=== PATIENT | male | born 1960 | race Caucasian/White ===

== ENCOUNTER 2017-01-25 11:06 | Emergency (ER) | payer BC, OTHER ==
[~2017-01-25] VITALS: Ht 180.3 cm; Wt 75.0 kg
[2017-01-25 11:07] VITALS: BP 120/73; PULSE 84; RESP 16; TEMP 98.2; O2SAT 96
[2017-01-25] MEDS ORDERED: IOHEXOL 350 MG/ML 10 ML VIAL (for RAD DIAG) IVCONTRAST ONE (11:07)
--- NOTE | 2017-01-25 11:26 | PD ---
HPI Chief Complaint: Abdominal Pain Time Seen by Provider: 11:14 Travel History International Travel<30 days: No Contact w/Intl Traveler<30days: No Traveled to known affect area: No History of Present Illness HPI 56-year-old male presents to the emergency Department with complaint of left lower abdominal pain since Tuesday. He reports moving heavy furniture on Tuesday with onset of pain. Reports urinary frequency. Denies dysuria. Denies fever, vomiting, change in stool, hematuria. Last normal bowel movement this morning. Denies history of abdominal surgeries. Is prescribed oxycodone for chronic pain and says it helped decrease the pain a little bit. Has not taken any other medications or turning her treatments to alleviate symptoms. No known relieving or aggravating factors. Rates pain 8-/10. Describes as a wrenching sensation. History of insulin-dependent diabetes mellitus, chronic pain. Primary care provider is Dr. Villa. Allergies to penicillin. Has no other medical complaints. No other modifying factors or associated signs and symptoms. PFSH Past Medical History Asthma: No COPD: No Diabetes: Yes Social History Tobacco Use: No Allergies-Medications (Allergen,Severity, Reaction): Coded Allergies: aspirin (Unverified Allergy, Severe, 09/28/16) penicillin G (Unverified Allergy, Severe, 09/28/16) Review of Systems Except as stated in HPI: all other systems reviewed are Neg Physical Exam Narrative GENERAL: Well-nourished, well-developed male patient, in no acute distress; afebrile SKIN: Warm and dry. HEAD: Atraumatic. Normocephalic. EYES: Pupils equal and round. No scleral icterus. No injection or drainage. ENT: Mucosa pink and moist. Airway patent. NECK: Trachea midline. CARDIOVASCULAR: Regular rate and rhythm. No murmur appreciated. RESPIRATORY: No accessory muscle use. Clear to auscultation. Breath sounds equal bilaterally. GASTROINTESTINAL: Abdomen soft, tenderness on palpation to left lower quadrant, nondistended. Hepatic and splenic margins not palpable. Bowel sounds are active 4 quadrants. Nonrigid. No guarding. No inguinal hernia noted lying down or standing. BACK: No CVA tenderness. MUSCULOSKELETAL: No obvious deformities. No clubbing. No cyanosis. No edema. NEUROLOGICAL: Awake and alert. Oriented 3. No obvious cranial nerve deficits. Motor grossly within normal limits. Normal speech. PSYCHIATRIC: Appropriate mood and affect; insight and judgment normal. Data Data Last Documented VS Vital Signs Date Time Temp Pulse Resp B/P (MAP) Pulse Ox O2 Delivery O2 Flow Rate FiO2 01/25/17 12:54 60 17 133/81 (98) 98 Room Air 01/25/17 11:07 98.2 Orders Orders Complete Blood Count With Diff (01/25/17 11:33) Comprehensive Metabolic Panel (01/25/17 11:33) Lipase (01/25/17 11:33) Prothrombin Time / Inr (Pt) (01/25/17 11:33) Act Partial Throm Time (Ptt) (01/25/17 11:33) Urinalysis - C+S If Indicated (01/25/17 11:33) Ct Abd/Pel W Iv Contrast(Rout) (01/25/17 11:33) Iv Access Insert/Monitor (01/25/17 11:33) Ecg Monitoring (01/25/17 11:33) Oximetry (01/25/17 11:33) Morphine Inj (Morphine Inj) (01/25/17 11:45) Sodium Chlor 0.9% 1000 Ml Inj (Ns 1000 M (01/25/17 11:33) Sodium Chloride 0.9% Flush (Ns Flush) (01/25/17 11:45) Ondansetron Inj (Zofran Inj) (01/25/17 11:45) Iohexol 350 Inj (Omnipaque 350 Inj) (01/25/17 11:07) Ed Discharge Order (01/25/17 14:40) Labs Laboratory Tests Test 01/25/17 12:42 01/25/17 12:45 Urine Color YELLOW Urine Turbidity CLEAR Urine pH 5.5 Urine Specific [place] 1.027 Urine Protein TRACE mg/dL Urine Glucose (UA) NEG mg/dL Urine Ketones NEG mg/dL Urine Occult Blood NEG Urine Nitrite NEG Urine Bilirubin NEG Urine Urobilinogen 2.0 MG/DL Urine Leukocyte Esterase NEG Urine WBC 1 /hpf Urine Mucus FEW /lpf Microscopic Urinalysis Comment CULT NOT INDICATED White Blood Count 6.5 TH/MM3 Red Blood Count 5.23 MIL/MM3 Hemoglobin 15.1 GM/DL Hematocrit 46.0 % Mean Corpuscular Volume 88.0 FL Mean Corpuscular Hemoglobin 28.9 PG Mean Corpuscular Hemoglobin Concent 32.9 % Red Cell Distribution Width 12.9 % Platelet Count 179 TH/MM3 Mean Platelet Volume 8.4 FL Neutrophils (%) (Auto) 44.7 % Lymphocytes (%) (Auto) 41.8 % Monocytes (%) (Auto) 9.2 % Eosinophils (%) (Auto) 3.3 % Basophils (%) (Auto) 1.0 % Neutrophils # (Auto) 2.9 TH/MM3 Lymphocytes # (Auto) 2.7 TH/MM3 Monocytes # (Auto) 0.6 TH/MM3 Eosinophils # (Auto) 0.2 TH/MM3 Basophils # (Auto) 0.1 TH/MM3 CBC Comment DIFF FINAL Differential Comment Prothrombin Time 10.9 SEC Prothromb Time International Ratio 1.1 RATIO Activated Partial Thromboplast Time 26.4 SEC Blood Urea Nitrogen 14 MG/DL Creatinine 1.04 MG/DL Random Glucose 162 MG/DL Total Protein 7.3 GM/DL Albumin 3.6 GM/DL Calcium Level 9.0 MG/DL Alkaline Phosphatase 135 U/L Aspartate Amino Transf (AST/SGOT) 17 U/L Alanine Aminotransferase (ALT/SGPT) 21 U/L Total Bilirubin 0.4 MG/DL Sodium Level 136 MEQ/L Potassium Level 3.9 MEQ/L Chloride Level 102 MEQ/L Carbon Dioxide Level 28.8 MEQ/L Anion Gap 5 MEQ/L Estimat Glomerular Filtration Rate 73 ML/MIN Lipase 92 U/L MDM Medical Decision Making Medical Screen Exam Complete: Yes Emergency Medical Condition: Yes Medical Record Reviewed: Yes Differential Diagnosis Diverticulitis, diverticulosis, abscess, gastritis, muscle strain of abdomen, hernia Narrative Course 56-year-old male with left lower quadrant abdominal pain on physical exam. 1134: Dr. Knapp evaluated the patient and agrees with my plan of care. CBC , CMP, lipase, urinalysis, CT abdomen/pelvis, morphine, Zofran, normal saline bolus ordered. 1353: CBC, CMP, urinalysis unremarkable. Lipase 92. 1438: CT abdomen/pelvis concludes: Abdomen/Pelvis CT 01/25/17 1133 Signed Impressions: Service Date/Time: Wednesday, January 25, 2017 13:56 - CONCLUSION: 1. No acute CT findings in abdomen or pelvis to explain patient's symptoms. 2. Normal appendix. 3. Ill-defined 1.7 x 1.3 cm hypodense lesion in segment 4 of the liver. This may be artifactual in etiology related to phase of contrast although a focal hepatic lesion cannot be excluded. Recommend liver MRI examination on an outpatient basis for further evaluation. Saul Moreno MD Discussed CT findings and provided the patient with a copy of CT. Instructed patient to follow up outpatient for MRI as recommended by the CT impressions. Instructed patient to follow up with primary care provider. Patient verbalizes understanding and agreement with treatment plan. Patient is medically cleared and stable for discharge. Discussed reasons to return to the emergency department. Patient agrees with treatment plan. The patients vital signs are stable and the patient is stable for outpatient follow-up and treatment. Patient discharged home, stable and in no acute distress. Diagnosis Primary Impression: Abdominal pain Qualified Codes: R10.32 - Left lower quadrant pain Referrals: [facility] Primary Care Physician Patient Instructions: Abdominal Pain (ED), General Instructions Additional Instructions: Follow-up for outpatient MRI per the recommendation of their CT scan Follow up primary care provider Follow up with gastroenterology Return to the emergency department immediately with worsening of symptoms Med/Other Pt SpecificInfo: No Change to Meds, No Meds Exist/No RX given Disposition: 01 DISCHARGE HOME Condition: Stable Lora Shaikh Jan 25, 2017 11:26
[2017-01-25] MEDS ORDERED: SODIUM CHLOR 0.9% 1000 ML INJ 1,000 ML IV SCH (11:33)
[2017-01-25] MEDS ORDERED: SODIUM CHLORIDE 0.9% FLUSH 10 ML FLUSH IV FLUSH PRN (11:45)
[2017-01-25] MEDS ORDERED: ONDANSETRON HCL 4 MG/2 ML VIAL IV PUSH ONE (11:45)
[2017-01-25] MEDS ORDERED: MORPHINE SULFATE 4 MG/ML INJ IV PUSH ONE (11:45)
[2017-01-25 12:54] VITALS: BP 133/81; PULSE 60; RESP 17; O2SAT 98
[2017-01-25 13:00] VITALS: RESP 17
[2017-01-25 13:12] LABS: AUTOMATED NEUTROPHIL # 2.9 TH/MM3 (1.8-7.7); BASOPHIL # 0.1 TH/MM3 (0-0.2); EOSINOPHIL # 0.2 TH/MM3 (0-0.4); EOSINOPHIL % 3.3 % (0.0-4.0); HEMO FLAGS DIFF FINAL; LYMPH % 41.8 % (9.0-44.0); LYMPHOCYTE # 2.7 TH/MM3 (1.0-4.8); MEAN CORPUSCULAR HEMOGLOBIN 28.9 PG (27.0-34.0); MEAN CORPUSCULAR HGB CONC 32.9 % (32.0-36.0); MONO % 9.2 % (0.0-8.0); NEUT % 44.7 % (16.0-70.0); PLATELET COUNT 179 TH/MM3 (150-450); RED BLOOD COUNT 5.23 MIL/MM3 (4.50-5.90); RED CELL DISTRIBUTION WIDTH 12.9 % (11.6-17.2); WHITE BLOOD COUNT 6.5 TH/MM3 (4.0-11.0)
[2017-01-25 13:18] LABS: BLOOD, URINE NEG (NEG); GLUCOSE,URINE NEG (NEG); KETONE, URINE NEG (NEG); MUCUS URINE FEW /lpf (OCC); NITRITE,URINE NEG (NEG); PH, URINE 5.5 (5.0-8.5); URINE COLOR YELLOW (YELLW/STRAW)
[2017-01-25 13:20] LABS: COMMENT (UR) CULT NOT INDICATED; CULTURE IF INDICATED CULT NOT INDICATED
[2017-01-25 13:21] LABS: APTT (PATIENT) 26.4 SEC (24.3-30.1); INTERNATIONAL NORMALIZED RATIO 1.1 RATIO; PROTHROMBIN TIME - PATIENT 10.9 SEC (9.8-11.6)
[2017-01-25 13:30] LABS: ALT (GPT) 21 U/L (12-78); ANION GAP 5 MEQ/L (5-15); AST (GOT) 17 U/L (15-37); BICARBONATE 28.8 MEQ/L (21.0-32.0); BLOOD UREA NITROGEN 14 MG/DL (7-18); CHLORIDE 102 MEQ/L (98-107); GLOMERULAR FILTRATION RATE 73 ML/MIN (>89); POTASSIUM 3.9 MEQ/L (3.5-5.1); SODIUM (NA) 136 MEQ/L (136-145)
[2017-01-25 13:31] LABS: ALKALINE PHOSPHATASE 135 U/L (45-117); TOTAL BILIRUBIN ADULT 0.4 MG/DL (0.2-1.0)
--- NOTE | 2017-01-25 14:29 | RADRPT ---
EXAM DATE/TIME: 01/25/2017 13:56 [facility] COMPARISON: No previous studies available for comparison. INDICATIONS : Lower abdominal pain. IV CONTRAST: 95 cc Omnipaque 350 (iohexol) IV ORAL CONTRAST: No oral contrast ingested. RADIATION DOSE: 5.64 CTDIvol (mGy) MEDICAL HISTORY : Diabetes mellitus type 2. SURGICAL HISTORY : None. ENCOUNTER: Initial ACUITY: 1 day PAIN SCALE: 5/10 LOCATION: Bilateral lower quadrant TECHNIQUE: Volumetric scanning of the abdomen and pelvis was performed. Using automated exposure control and ad justment of the mA and/or kV according to patient size, radiation dose was kept as low as reasonably achievable to obtain optimal diagnostic quality images. DICOM format image data is available electro nically for review and comparison. FINDINGS: LOWER LUNGS: The visualized lower lungs are clear. LIVER: There is an ill-defined 1.7 x 1.3 cm hypodense lesion in segment 4 of the liver. Liver otherwise appe ars unremarkable without significant volume loss. Gallbladder is decompressed and unremarkable by CT. SPLEEN: Normal size without lesion. PANCREAS: Within normal limits. KIDNEYS: There is a 4.0 x 2.8 cm large endophytic cyst in the mid left kidney. Kidneys otherwise demonstrate s ymmetrical enhancement without evidence for hydronephrosis or radiopaque renal calculi. ADRENAL GLANDS: Within normal limits. VASCULAR: There is no aortic aneurysm. BOWEL/MESENTERY: The stomach, small bowel, and colon demonstrate no acute abnormality. Appendix is visualized and appe ars unremarkable. There is no free intraperitoneal air or fluid. ABDOMINAL WALL: Within normal limits. RETROPERITONEUM: There is no lymphadenopathy. BLADDER: No wall thickening or mass. REPRODUCTIVE: Within normal limits. INGUINAL: Well-defined calcified density in the left inguinal canal not associated with any additional abnormal ity. This may reflect a small phlebolith MUSCULOSKELETAL: Degenerative spondylosis of the lumbar spine. No abnormal lytic or blastic bony lesions. CONCLUSION: 1. No acute CT findings in abdomen or pelvis to explain patient's symptoms. 2. Normal appendix. 3. Ill-defined 1.7 x 1.3 cm hypodense lesion in segment 4 of the liver. This may be artifactual in et iology related to phase of contrast although a focal hepatic lesion cannot be excluded. Recommend valerie er MRI examination on an outpatient basis for further evaluation. Saul Moreno MD on January 25, 2017 at 14:16 Board Certified Radiologist. This report was verified electronically.
--- NOTE | 2017-01-25 14:38 | PD ---
Data Data Last Documented VS Vital Signs Date Time Temp Pulse Resp B/P (MAP) Pulse Ox O2 Delivery O2 Flow Rate FiO2 01/25/17 15:01 01/25/17 13:00 17 01/25/17 12:54 60 98 Room Air 01/25/17 11:07 98.2 Orders Orders Complete Blood Count With Diff (01/25/17 11:33) Comprehensive Metabolic Panel (01/25/17 11:33) Lipase (01/25/17 11:33) Prothrombin Time / Inr (Pt) (01/25/17 11:33) Act Partial Throm Time (Ptt) (01/25/17 11:33) Urinalysis - C+S If Indicated (01/25/17 11:33) Ct Abd/Pel W Iv Contrast(Rout) (01/25/17 11:33) Iv Access Insert/Monitor (01/25/17 11:33) Ecg Monitoring (01/25/17 11:33) Oximetry (01/25/17 11:33) Morphine Inj (Morphine Inj) (01/25/17 11:45) Sodium Chlor 0.9% 1000 Ml Inj (Ns 1000 M (01/25/17 11:33) Sodium Chloride 0.9% Flush (Ns Flush) (01/25/17 11:45) Ondansetron Inj (Zofran Inj) (01/25/17 11:45) Iohexol 350 Inj (Omnipaque 350 Inj) (01/25/17 11:07) Ed Discharge Order (01/25/17 14:40) Labs Laboratory Tests Test 01/25/17 12:42 01/25/17 12:45 Urine Color YELLOW Urine Turbidity CLEAR Urine pH 5.5 Urine Specific [place] 1.027 Urine Protein TRACE mg/dL Urine Glucose (UA) NEG mg/dL Urine Ketones NEG mg/dL Urine Occult Blood NEG Urine Nitrite NEG Urine Bilirubin NEG Urine Urobilinogen 2.0 MG/DL Urine Leukocyte Esterase NEG Urine WBC 1 /hpf Urine Mucus FEW /lpf Microscopic Urinalysis Comment CULT NOT INDICATED White Blood Count 6.5 TH/MM3 Red Blood Count 5.23 MIL/MM3 Hemoglobin 15.1 GM/DL Hematocrit 46.0 % Mean Corpuscular Volume 88.0 FL Mean Corpuscular Hemoglobin 28.9 PG Mean Corpuscular Hemoglobin Concent 32.9 % Red Cell Distribution Width 12.9 % Platelet Count 179 TH/MM3 Mean Platelet Volume 8.4 FL Neutrophils (%) (Auto) 44.7 % Lymphocytes (%) (Auto) 41.8 % Monocytes (%) (Auto) 9.2 % Eosinophils (%) (Auto) 3.3 % Basophils (%) (Auto) 1.0 % Neutrophils # (Auto) 2.9 TH/MM3 Lymphocytes # (Auto) 2.7 TH/MM3 Monocytes # (Auto) 0.6 TH/MM3 Eosinophils # (Auto) 0.2 TH/MM3 Basophils # (Auto) 0.1 TH/MM3 CBC Comment DIFF FINAL Differential Comment Prothrombin Time 10.9 SEC Prothromb Time International Ratio 1.1 RATIO Activated Partial Thromboplast Time 26.4 SEC Blood Urea Nitrogen 14 MG/DL Creatinine 1.04 MG/DL Random Glucose 162 MG/DL Total Protein 7.3 GM/DL Albumin 3.6 GM/DL Calcium Level 9.0 MG/DL Alkaline Phosphatase 135 U/L Aspartate Amino Transf (AST/SGOT) 17 U/L Alanine Aminotransferase (ALT/SGPT) 21 U/L Total Bilirubin 0.4 MG/DL Sodium Level 136 MEQ/L Potassium Level 3.9 MEQ/L Chloride Level 102 MEQ/L Carbon Dioxide Level 28.8 MEQ/L Anion Gap 5 MEQ/L Estimat Glomerular Filtration Rate 73 ML/MIN Lipase 92 U/L MDM Medical Record Reviewed: Yes Supervised Visit with CHET: Yes Narrative Course I, Dr. Knapp, have reviewed the advance practice practitioner's documentation and am in agreement, met with the patient face to face, made the diagnosis, and the medical decision making was done by me. *My assessment and Findings: Work up is essentially unremarkable aside from liver mass which was discussed with the patient. Concern for MSK etiology. Diagnosis Primary Impression: Abdominal pain Qualified Codes: R10.9 - Unspecified abdominal pain Additional Impression: Liver mass Med/Other Pt SpecificInfo: No Change to Meds Disposition: 01 DISCHARGE HOME Condition: Stable Shaun Knapp MD Jan 25, 2017 14:38
== END 2017-01-25 15:01 | disposition home or self-care (01) ==
LOC: NEPD 11:06
DX: R10.32 Left lower quadrant pain (principal); R16.0 Hepatomegaly, not elsewhere classified; E11.9 Type 2 diabetes mellitus without complications; G89.29 Other chronic pain; Z88.0 Allergy status to penicillin
CPT/HCPCS: 74177; 80053; 81001; 83690; 85025; 85610; 85730; 96361; 96374; 96375; 99285; J2270; J2405; J7030; Q9967

== ENCOUNTER 2017-02-02 11:58 | Emergency (ER) | payer BC ==
[2017-02-02 11:58] VITALS: BP 159/73; PULSE 84; RESP 14; TEMP 98.6; O2SAT 95
[2017-02-02] MEDS ORDERED: IOHEXOL 350 MG/ML 10 ML VIAL (for RAD DIAG) IVCONTRAST ONE (11:59)
[2017-02-02] MEDS ORDERED: NOVOLOGMXP SQ (12:25)
[2017-02-02] MEDS ORDERED: OXYC-426 PO (12:25)
[2017-02-02] MEDS ORDERED: METF500T PO (12:25)
--- NOTE | 2017-02-02 12:39 | PD ---
HPI Chief Complaint: Abdominal Pain Time Seen by Provider: 12:39 Travel History International Travel<30 days: No Contact w/Intl Traveler<30days: No Traveled to known affect area: No History of Present Illness HPI 56-year-old male came to the emergency room with history of left groin pain that 's been going on for past couple days. Patient works in a factory and lifts heavy weights. Patient says lately he is noticed that every time he goes to lift heavy weight the pain worsens. Today he was also having trouble urinating. Patient told me that he last urinated was at 7 AM. The stable. He has been on his phone the entire time and does not appear to be in any distress. [facility] Past Medical History Narrative Medical List of his past medical, surgical, social and family history is reviewed from the nursing note. Asthma: No COPD: No Diabetes: Yes Patient Takes Glucophage: Yes Social History Alcohol Use: No Tobacco Use: Yes Substance Use: No Allergies-Medications (Allergen,Severity, Reaction): Coded Allergies: aspirin (Unverified Allergy, Severe, 02/02/17) penicillin G (Unverified Allergy, Severe, 02/02/17) Comments List of his allergies reviewed from the nursing note. Reported Meds & Prescriptions Reported Meds & Active Scripts Active Reported Metformin (Metformin HCl) 500 Mg Tab 500 Mg PO BIDPC Novolog Mix 70-30 Inj (Insulin Aspart Prota 70%/Aspart 30%) 1,000 Unit/10 Ml Vial 20 Units SQ DAILY Novolog Mix 70-30 Inj (Insulin Aspart Prota 70%/Aspart 30%) 1,000 Unit/10 Ml Vial 35 Units SQ DAILY Oxycodone ER (Oxycodone HCl) 30 Mg Tab 30 Mg PO Q12HR Narrative Medication List of his home medications reviewed from the nursing note. Review of Systems Except as stated in HPI: all other systems reviewed are Neg Gastrointestinal: Positive: Abdominal Pain Physical Exam Narrative GENERAL: Awake, alert, anxious, no obvious distress SKIN: Focused skin assessment warm/dry. HEAD: Atraumatic. Normocephalic. EYES: Pupils equal and round. No scleral icterus. No injection or drainage. ENT: No nasal bleeding or discharge. Mucous membranes pink and moist. NECK: Trachea midline. No JVD. CARDIOVASCULAR: Regular rate and rhythm. No murmur appreciated. RESPIRATORY: No accessory muscle use. Clear to auscultation. Breath sounds equal bilaterally. GASTROINTESTINAL: Abdomen soft, non-tender, nondistended. Hepatic and splenic margins not palpable. No hernia noticed MUSCULOSKELETAL: No obvious deformities. No clubbing. No cyanosis. No edema. NEUROLOGICAL: Awake and alert. No obvious cranial nerve deficits. Motor grossly within normal limits. Normal speech. PSYCHIATRIC: Appropriate mood and affect; insight and judgment normal. Data Data Last Documented VS Orders Orders Complete Blood Count With Diff (02/02/17 12:45) Comprehensive Metabolic Panel (02/02/17 12:45) Ua Includes Microscopic (02/02/17 12:45) Ct Abd/Pel W Iv Contrast(Rout) (02/02/17 12:45) Iv Access Insert/Monitor (02/02/17 12:45) Ecg Monitoring (02/02/17 12:45) Oximetry (02/02/17 12:45) Sodium Chloride 0.9% Flush (Ns Flush) (02/02/17 12:45) Iohexol 350 Inj (Omnipaque 350 Inj) (02/02/17 11:59) Ed Discharge Order (02/02/17 16:44) Labs Laboratory Tests Test 02/02/17 14:45 02/02/17 14:50 White Blood Count 7.1 TH/MM3 Red Blood Count 5.05 MIL/MM3 Hemoglobin 14.6 GM/DL Hematocrit 44.3 % Mean Corpuscular Volume 87.6 FL Mean Corpuscular Hemoglobin 28.9 PG Mean Corpuscular Hemoglobin Concent 33.0 % Red Cell Distribution Width 12.9 % Platelet Count 207 TH/MM3 Mean Platelet Volume 8.4 FL Neutrophils (%) (Auto) 44.7 % Lymphocytes (%) (Auto) 41.8 % Monocytes (%) (Auto) 8.6 % Eosinophils (%) (Auto) 3.7 % Basophils (%) (Auto) 1.2 % Neutrophils # (Auto) 3.2 TH/MM3 Lymphocytes # (Auto) 2.9 TH/MM3 Monocytes # (Auto) 0.6 TH/MM3 Eosinophils # (Auto) 0.3 TH/MM3 Basophils # (Auto) 0.1 TH/MM3 CBC Comment DIFF FINAL Differential Comment Blood Urea Nitrogen 13 MG/DL Creatinine 1.00 MG/DL Random Glucose 105 MG/DL Total Protein 6.9 GM/DL Albumin 3.5 GM/DL Calcium Level 9.2 MG/DL Alkaline Phosphatase 120 U/L Aspartate Amino Transf (AST/SGOT) 22 U/L Alanine Aminotransferase (ALT/SGPT) 18 U/L Total Bilirubin 0.3 MG/DL Sodium Level 140 MEQ/L Potassium Level 4.1 MEQ/L Chloride Level 104 MEQ/L Carbon Dioxide Level 31.9 MEQ/L Anion Gap 4 MEQ/L Estimat Glomerular Filtration Rate 77 ML/MIN Urine Color YELLOW Urine Turbidity CLEAR Urine pH 5.5 Urine Specific [place] 1.025 Urine Protein NEG mg/dL Urine Glucose (UA) NEG mg/dL Urine Ketones NEG mg/dL Urine Occult Blood NEG Urine Nitrite NEG Urine Bilirubin NEG Urine Urobilinogen LESS THAN 2.0 MG/DL Urine Leukocyte Esterase NEG Urine RBC LESS THAN 1 /hpf Urine WBC LESS THAN 1 /hpf MDM Medical Decision Making Medical Screen Exam Complete: Yes Emergency Medical Condition: Yes Medical Record Reviewed: Yes Differential Diagnosis Inguinal hernia, urinary retention, UTI Narrative Course 4:42 PM bedside ultrasound and post void bladder scan was done by me. Post void residual urine was 0 mL. Blood test results were back and within normal limit. I ordered a CT scan of his abdomen which is negative. I'm comfortable discharging this patient home. Procedures Procedure Narrative Emergency Department Pelvic ultrasound was performed with patient consent. The curvilinear probe was used in the transverse and sagittal views within the suprapubic region revealing 0 residual postvoid urine in the bladder. EKG Prior to Arrival: No Diagnosis Primary Impression: Abdominal pain Qualified Codes: R10.9 - Unspecified abdominal pain Referrals: Primary Care Physician Additional Instructions: Return to the ER if the condition worsens or any other new concerns. Otherwise follow-up with your primary care. Med/Other Pt SpecificInfo: No Change to Meds Disposition: 01 DISCHARGE HOME Condition: Stable Julita Del Castillo MD Feb 02, 2017 12:39
[2017-02-02] MEDS ORDERED: SODIUM CHLORIDE 0.9% FLUSH 10 ML FLUSH IV FLUSH PRN (12:45)
[2017-02-02 15:06] LABS: AUTOMATED NEUTROPHIL # 3.2 TH/MM3 (1.8-7.7); BASOPHIL # 0.1 TH/MM3 (0-0.2); BASOPHIL % 1.2 % (0.0-2.0); EOSINOPHIL # 0.3 TH/MM3 (0-0.4); EOSINOPHIL % 3.7 % (0.0-4.0); HEMATOCRIT 44.3 % (39.0-51.0); HEMOGLOBIN 14.6 GM/DL (13.0-17.0); LYMPH % 41.8 % (9.0-44.0); LYMPHOCYTE # 2.9 TH/MM3 (1.0-4.8); MEAN CELL VOLUME 87.6 FL (80.0-100.0); MEAN CORPUSCULAR HEMOGLOBIN 28.9 PG (27.0-34.0); MEAN PLATELET VOLUME 8.4 FL (7.0-11.0); MONO % 8.6 % (0.0-8.0); MONOCYTE # 0.6 TH/MM3 (0-0.9); NEUT % 44.7 % (16.0-70.0); PLATELET COUNT 207 TH/MM3 (150-450); RED BLOOD COUNT 5.05 MIL/MM3 (4.50-5.90); RED CELL DISTRIBUTION WIDTH 12.9 % (11.6-17.2); WHITE BLOOD COUNT 7.1 TH/MM3 (4.0-11.0)
[2017-02-02 15:11] LABS: BILIRUBIN, URINE NEG (NEG); BLOOD, URINE NEG (NEG); GLUCOSE,URINE NEG (NEG); KETONE, URINE NEG (NEG); NITRITE,URINE NEG (NEG); PH, URINE 5.5 (5.0-8.5); URINE COLOR YELLOW (YELLW/STRAW); URINE LEUKOCYTE ESTERASE NEG (NEG)
[2017-02-02 15:30] LABS: ALBUMIN 3.5 GM/DL (3.4-5.0); ALT (GPT) 18 U/L (12-78); AST (GOT) 22 U/L (15-37); BICARBONATE 31.9 MEQ/L (21.0-32.0); BLOOD UREA NITROGEN 13 MG/DL (7-18); CALCIUM 9.2 MG/DL (8.5-10.1); CHLORIDE 104 MEQ/L (98-107); GLOMERULAR FILTRATION RATE 77 ML/MIN (>89); GLUCOSE,RANDOM 105 MG/DL (74-106); SODIUM (NA) 140 MEQ/L (136-145)
[2017-02-02 15:32] LABS: ALKALINE PHOSPHATASE 120 U/L (45-117); TOTAL BILIRUBIN ADULT 0.3 MG/DL (0.2-1.0); TOTAL PROTEIN 6.9 GM/DL (6.4-8.2)
--- NOTE | 2017-02-02 16:27 | RADRPT ---
EXAM DATE/TIME: 02/02/2017 15:54 [facility] COMPARISON: CT ABDOMEN & PELVIS W CONTRAST, January 25, 2017, 13:56. INDICATIONS : Left inguinal hernia pain trouble urinating. IV CONTRAST: 82 cc Omnipaque 350 (iohexol) IV ORAL CONTRAST: No oral contrast ingested. RADIATION DOSE: 6.64 CTDIvol (mGy) MEDICAL HISTORY : Diabetes SURGICAL HISTORY : None. ENCOUNTER: Initial ACUITY: 1 day PAIN SCALE: 8/10 LOCATION: Left Abdomen TECHNIQUE: Volumetric scanning of the abdomen and pelvis was performed. Using automated exposure control and ad justment of the mA and/or kV according to patient size, radiation dose was kept as low as reasonably achievable to obtain optimal diagnostic quality images. DICOM format image data is available electro nically for review and comparison. FINDINGS: LOWER LUNGS: The visualized lower lungs are clear. LIVER: Homogeneous density without lesion. There is no dilation of the biliary tree. No calcified gallston es. SPLEEN: Normal size without lesion. PANCREAS: Within normal limits. KIDNEYS: Normal in size and shape. There is no mass, stone or hydronephrosis. A 4 cm simple cyst seen involvi ng the midpole the left kidney. ADRENAL GLANDS: Within normal limits. VASCULAR: There is no aortic aneurysm. BOWEL/MESENTERY: The stomach, small bowel, and colon demonstrate no acute abnormality. There is no free intraperitone al air or fluid. ABDOMINAL WALL: Within normal limits. RETROPERITONEUM: There is no lymphadenopathy. BLADDER: No wall thickening or mass. REPRODUCTIVE: Within normal limits. INGUINAL: There is no lymphadenopathy or hernia. MUSCULOSKELETAL: Within normal limits for patient age. CONCLUSION: 1. No acute abnormality. 2. 4 cm left renal cyst. 3. No hepatic lesion appreciated. Juan Francisco Koroma Jr., MD on February 02, 2017 at 16:21 Board Certified Radiologist. This report was verified electronically.
== END 2017-02-02 18:28 | disposition home or self-care (01) ==
LOC: NEPD 11:58
DX: R10.9 Unspecified abdominal pain (principal); N28.1 Cyst of kidney, acquired; E11.9 Type 2 diabetes mellitus without complications; Z72.0 Tobacco use; Z88.6 Allergy status to analgesic agent; Z88.0 Allergy status to penicillin; Z79.4 Long term (current) use of insulin; Z79.899 Other long term (current) drug therapy
CPT/HCPCS: 74177; 80053; 81001; 85025; 99284; Q9967